=== PATIENT | male | born 2000 | race Caucasian/White ===

== ENCOUNTER 2024-04-08 22:03 | Emergency (ER) | payer BC, SELFPAY ==
[2024-04-08 22:03] VITALS: BP 158/106; PULSE 97; RESP 18; TEMP 36.8; O2SAT 99
--- NOTE | 2024-04-08 22:10 | PC.NURSE ---
COVID SWAB AND STREP SWAB SENT TO LAB
--- NOTE | 2024-04-08 22:43 | ED.GENADULT ---
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 Complains of sore throat which she thinks is from the cough. He is eating and drinking voiding and stooling fine without any shortness of breath. His chest is sore when he coughs. Is walking talking seeing and hearing fine without rash or itching swelling lumps or bumps dizziness or lightheadedness weakness or numbness or any other complaints. He has been taking Tylenol cold and flu MD complaint: cough runny nose Related Data Home Medications ?Medication ?Instructions ?Recorded ?Confirmed ?Last Taken ?Type lisinopril 20 mg tablet mg 04/08/24 Unknown History omeprazole 40 mg capsule,delayed mg 04/08/24 Unknown History release Allergies Allergy/AdvReac Type Severity Reaction Status Date / Time No Known Allergies Allergy Verified 04/08/24 22:50 Exam Narrative: ?White male patient with no apparent distress.? patient has somewhat of a hoarse voice. Head normocephalic, atraumatic.? Eyes conjunctiva pink sclera nonicteric.? Extraocular movements are intact.? Ears externally normal.? Oropharynx is clear with moist mucous membranes without exudates.? Neck is supple nontender no lymphadenopathy.? Back is nontender.? Lungs are clear.? Heart is regular rate and rhythm without murmurs gallops or rubs.? Chest wall nontender. Abdomen is soft and nontender no hepatosplenomegaly or masses no CVA tenderness no abdominal bruits.? Extremities no cyanosis clubbing or edema.? Skin is warm and dry without rashes or lesions.? Neurological patient is alert and oriented x4.? Motor and sensory grossly intact.? Gait is normal. Course Course Emergency Course: ?Patient placed in room: Three ? History and physical was performed. flu COVID RSV all negative Independent Historian: patient External Source Review: Differential Dx includes but not limited to: asthmatic bronchitis flu COVID RSV Medications were Reviewed: patient is taking Tylenol cold and flu Medications given: offered a nebulizer treatment patient refused Independently Interpreted by me: labs independently interpreted by me. Shared decision Making: evaluation was discussed with the patient all questions were asked and answered patient agreed with the plan. 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 ALCARAZ DIAGNOSIS: Asthmatic bronchitis DISPOSITION : discharge home CONDITION AT DISCHARGE: stable Vital Signs Vital signs: Vital Signs Temperature 36.8 C 04/08/24 22:03 Pulse Rate 97 04/08/24 22:03 Respiratory Rate 18 04/08/24 22:03 Blood Pressure 158/106 H 04/08/24 22:03 Pulse Oximetry 99 04/08/24 22:03 Oxygen Delivery Room Air 04/08/24 22:03 Temperature 36.8 C 04/08/24 22:03 Pulse Rate 97 04/08/24 22:03 Respiratory Rate 18 04/08/24 22:03 Blood Pressure 158/106 H 04/08/24 22:03 Pulse Oximetry 99 04/08/24 22:03 Oxygen Delivery Room Air 04/08/24 22:03 Medical Decision Making Vital Signs Vital Signs: Vital Signs Temperature 36.8 C 04/08/24 22:03 Pulse Rate 97 04/08/24 22:03 Respiratory Rate 18 04/08/24 22:03 Blood Pressure 158/106 H 04/08/24 22:03 Pulse Oximetry 99 04/08/24 22:03 Oxygen Delivery Room Air 04/08/24 22:03 Temperature 36.8 C 04/08/24 22:03 Pulse Rate 97 04/08/24 22:03 Respiratory Rate 18 04/08/24 22:03 Blood Pressure 158/106 H 04/08/24 22:03 Pulse Oximetry 99 04/08/24 22:03 Oxygen Delivery Room Air 04/08/24 22:03 Lab Data Labs: Lab Results 04/08/24 Range/Units 22:10 Influenza A (RT-PCR) Negative (Negative) Influenza B (RT-PCR) Negative (Negative) RSV (RT-PCR) Negative (Negative) SARS-CoV-2 RNA (RT-PCR) Negative (Negative) Group A Strep (PCR) Not detected (Negative) Discharge Plan Discharge Clinical Impression: Bronchitis, asthmatic Qualifiers: Asthma severity: mild Asthma persistence: intermittent Asthma complication type: uncomplicated Qualified Code(s): J45.20 - Mild intermittent asthma, uncomplicated Patient Disposition: Home, Self-Care Condition: Stable Instructions: How to Use a Metered-Dose Inhaler (ED) Additional Instructions: take Tylenol and/or ibuprofen as needed for pain. Use in haler albuterol 2 puffs 4 times a day for 10 days. Return if you get worse or develops any new symptoms. Patient Language: Uzbek Prescriptions: New albuterol sulfate [Ventolin HFA] 90 mcg/actuation HFA aerosol inhaler 2 puff inhalation QID 10 Days Qty: 8.5 0RF No Action lisinopril 20 mg tablet omeprazole 40 mg capsule,delayed release(DR/EC) Follow-up/Referrals: UNKNOWN,DOCTOR [Primary Care Provider] - Time of Disposition: 23:17
--- NOTE | 2024-04-08 22:51 | PC.NURSE ---
DR HERNANDEZ AT THE BEDSIDE
[2024-04-08 22:53] LABS: SARS-CoV-2 RNA PCR Negative (Negative)
[2024-04-08 22:54] LABS: Influenza A QL RT-PCR Negative (Negative); Influenza B QL RT-PCR Negative (Negative); RSV RNA, RT-PCR Negative (Negative); Strep Group A RT-PCR NOT DETECTED (Negative)
[2024-04-08 23:28] VITALS: BP 150/96; PULSE 88; RESP 18; O2SAT 97
== END 2024-04-08 23:28 | disposition home or self-care (01) ==
PROVIDERS: Emergency Provider Emergency Medicine
DX: J45.20 Mild intermittent asthma, uncomplicated (principal); Z20.822 Contact with and (suspected) exposure to COVID-19
CPT/HCPCS: 87637; 87651; 99283